=== PATIENT | male | born 1945 | race Caucasian/White ===

== ENCOUNTER 2019-01-20 23:48 | Inpatient (IN) | payer MEDICARE, BC ==
[~2019-01-20] VITALS: Ht 172.7 cm; Wt 92.6 kg
--- NOTE | 2019-01-20 23:50 | NUR ---
Pt. BIB [facility] for near syncope from home, A/Ox4, accompanied by nephew, Farsi speaking, bed in low position, all pt. needs met,
[2019-01-20] MEDS ORDERED: ONDANSETRON 4 MG/2 ML VIAL ONE (23:59)
[2019-01-21] MEDS ORDERED: ONDANSETRON 4 MG/2 ML VIAL IV ONE
--- NOTE | 2019-01-21 00:06 | NUR ---
Phleb. tech. at bedside for blood draw,
[2019-01-21 00:16] LABS: BASOPHILS # (AUTO) 0.1 K/uL (0.0-8.0); BASOPHILS % (AUTO) 1.3 % (0.0-2.0); EOSINOPHILS # (AUTO) 0.3 K/uL (0.0-0.7); EOSINOPHILS % (AUTO) 3.8 % (0.0-7.0); HEMATOCRIT 29.5 % (36.7-47.1); HEMOGLOBIN 9.4 g/dL (12.5-16.3); LYMPHOCYTES # (AUTO) 2.9 K/uL (20.0-40.0); LYMPHOCYTES % (AUTO) 32.9 % (20.5-51.5); MEAN CORPUSCULAR HEMOGLOBIN 23.4 uug (23.8-33.4); MEAN CORPUSCULAR HGB CONC 32 g/dL (32.5-36.3); MEAN CORPUSCULAR VOLUME 73.5 fL (73.0-96.2); MONOCYTES # (AUTO) 0.8 K/uL (2.0-10.0); MONOCYTES % (AUTO) 9.1 % (0.0-11.0); NEUTROPHILS # (AUTO) 4.7 K/uL (1.8-8.9); NEUTROPHILS % (AUTO) 52.9 % (38.5-71.5); PLATELET COUNT (AUTO) 223 K/uL (152-348); RED BLOOD CELL COUNT(AUTO) 4.02 MIL/uL (4.06-5.63); WHITE BLOOD COUNT (AUTO) 8.8 K/uL (3.6-10.2)
[2019-01-21 00:37] LABS: CARBON DIOXIDE 26 mmol/L (21-32); CHLORIDE 104 mmol/L (98-107); CREATININE 1.8 mg/dL (0.6-1.3); GLUCOSE 111 mg/dL (74-106); POTASSIUM 3.6 mmol/L (3.5-5.1); UREA NITROGEN, BLOOD 24 mg/dL (7-18)
[2019-01-21] MEDS ORDERED: IV NORMAL SALINE 1000 ML BAG IV ONE ×2 (00:45)
[2019-01-21 00:47] LABS: ALANINE AMINOTRANSFERASE 20 U/L (16-63); ALKALINE PHOSPHATASE 75 U/L (50-136); ASPARTATE AMINOTRANSFERASE 11 U/L (15-37); BILIRUBIN,DIRECT 0.1 mg/dL (0.0-0.2); BILIRUBIN,TOTAL 0.2 mg/dL (0.2-1.0); TOTAL PROTEIN, SERUM 6.1 g/dL (6.4-8.2)
--- NOTE | 2019-01-21 01:07 | NUR ---
Call placed to [facility], Garrison Wade (ALVIN) will be paged.
--- NOTE | 2019-01-21 01:08 | NUR ---
Called for tele. bed - pt. to go into 305, called Epic - awaiting call back from Sheri,
--- NOTE | 2019-01-21 01:19 | NUR ---
Rad. tech. at bedside for CXR
[2019-01-21] MEDS ORDERED: ACETAMINOPHEN 325 MG TABLET PO PRN (01:30)
[2019-01-21] MEDS ORDERED: MAGNESIUM HYDROXIDE 30 ML LIQUID UDC PO PRN (01:30)
[2019-01-21] MEDS ORDERED: HYDROCODONE/APAP 5-325MG TABLET PO PRN (01:30)
[2019-01-21] MEDS ORDERED: ONDANSETRON 4 MG/2 ML VIAL IV PRN (01:30)
[2019-01-21] MEDS ORDERED: Z GUARD REMEDY PASTE 57 GM TUBE TOP PRN (01:30)
--- NOTE | 2019-01-21 01:36 | NUR ---
Gave report to Lizette ALBARRAN,
--- NOTE | 2019-01-21 01:37 | NUR ---
Rad. tech. at bedside for lateral CXR
--- NOTE | 2019-01-21 01:45 | NUR ---
Pt. taken off unit for admit to tele. 305 via stretcher, NAD
--- NOTE | 2019-01-21 01:55 | NUR ---
Admitted 74 year old male with diagnosis of SYNCOPE. Transferred from ER via gurney. Family at bedside. Patient AAOx4. Ambulatory. Denies pain. No SOB. IV on left hand intact and patent. BP 106/64. Denies feeling dizzy or nauseated. Tele monitors placed. Routine admission care done. Plan of care initiated. Safety measures implemented. Call baez within reach. All needs met at this time. Will continue to monitor throughout shift. Patient family instructed to notify them with any change in status. Pat (daughter) - Arcadio (nephew) -
[2019-01-21 02:40] VITALS: BP 106/64
[2019-01-21] MEDS: IV NS 1000 ML 1,000 ML IV PRN ×2 (03:02→16:31)
[2019-01-21 05:23] VITALS: BP 100/62
--- NOTE | 2019-01-21 06:00 | NUR ---
No acute distress noted at this time. Patient sleeping well in bed. NS running at 75mls/hr on left hand. Call light within reach.
[2019-01-21 07:00] LABS: BASOPHILS % (AUTO) 0.5 % (0.0-2.0); EOSINOPHILS # (AUTO) 0.1 K/uL (0.0-0.7); EOSINOPHILS % (AUTO) 1.6 % (0.0-7.0); HEMOGLOBIN 8.5 g/dL (12.5-16.3); LYMPHOCYTES # (AUTO) 1.5 K/uL (20.0-40.0); LYMPHOCYTES % (AUTO) 22.1 % (20.5-51.5); MEAN CORPUSCULAR HGB CONC 31 g/dL (32.5-36.3); MEAN CORPUSCULAR VOLUME 73.4 fL (73.0-96.2); MONOCYTES # (AUTO) 0.5 K/uL (2.0-10.0); MONOCYTES % (AUTO) 7.2 % (0.0-11.0); NEUTROPHILS # (AUTO) 4.6 K/uL (1.8-8.9); NEUTROPHILS % (AUTO) 68.6 % (38.5-71.5); PLATELET COUNT (AUTO) 192 K/uL (152-348); RED BLOOD CELL COUNT(AUTO) 3.68 MIL/uL (4.06-5.63); WHITE BLOOD COUNT (AUTO) 6.8 K/uL (3.6-10.2)
[2019-01-21 07:27] LABS: CARBON DIOXIDE 26 mmol/L (21-32); CHLORIDE 106 mmol/L (98-107); CREATININE 1.6 mg/dL (0.6-1.3); GLUCOSE 107 mg/dL (74-106); POTASSIUM 5.1 mmol/L (3.5-5.1); UREA NITROGEN, BLOOD 25 mg/dL (7-18)
[2019-01-21] MEDS ORDERED: VALS320T2 PO (10:18)
[2019-01-21] MEDS ORDERED: BIMA2.5D5 EACHEYE (10:20)
[2019-01-21] MEDS ORDERED: ASPI81TA31 PO (10:21)
[2019-01-21] MEDS ORDERED: CALC-822 PO (10:41)
[2019-01-21 11:14] VITALS: BP 104/65
[2019-01-21 11:18] LABS: IRON, SERUM 32 ug/dL (50-175)
[2019-01-21 12:23] LABS: BAND % (MANUAL) 4 % (0-10); EOSINOPHILS % (MANUAL) 1 % (0-8); LYMPHOCYTES % (MANUAL) 23 % (20-40); MONOCYTES % (MANUAL) 8 % (2-10); NEUTROPHILS % (MANUAL) 64 % (42-75)
[2019-01-21] MEDS: ASPIRIN 81 MG TAB.CHEW PO SCH (12:47)
[2019-01-21 15:22] LABS: *BILIRUBIN,URIN NEGATIVE (NEGATIVE); *BLOOD, URINE NEGATIVE (NEGATIVE); *CLARITY,URINE CLEAR (CLEAR); *COLOR,URINE YELLOW (YELLOW); *KETONES,URINE NEGATIVE (NEGATIVE); *UROBILINOGEN,URINE 0.2 E.U./dl (NORMAL); LEUKOCYTE ESTERASE ,URINE NEGATIVE (NEGATIVE); NITRITE, URINE NEGATIVE (NEGATIVE); UGLUCOSE NEGATIVE (NEGATIVE)
[2019-01-21 15:32] VITALS: BP 108/64
[2019-01-21 16:43] LABS: WBC,URINE NONE SEEN /HPF (0-3)
[2019-01-21] MEDS ORDERED: BIMATOPROST 0.01% OPHT DROP 2.5 ML BOTTLE EACHEYE SCH (18:00)
--- NOTE | 2019-01-21 19:30 | NUR ---
Received patient lying in bed, awake, alert, oriented x 4 and ambulatory. Patient is in room air, tolerated. Not in any form of distress. With IV access on the left hand to ongoing IV fluid, infusing well. No complaints at the moment. Still awaiting Neurology consult. Bed in low position, locked, side rails up x 2, call light within reach. Will continue to monitor.
[2019-01-21 20:15] VITALS: BP 110/75
[2019-01-21] MEDS ORDERED: ATORVASTATIN 40 MG TABLET PO SCH (21:00)
[2019-01-21] MEDS ORDERED: LATANOPROST OPHT DROP 2.5 ML BOTTLE EACHEYE SCH (21:00)
[2019-01-21 21:35] LABS: *BILIRUBIN,URIN NEGATIVE (NEGATIVE); *BLOOD, URINE NEGATIVE (NEGATIVE); *CLARITY,URINE CLEAR (CLEAR); *COLOR,URINE YELLOW (YELLOW); *KETONES,URINE NEGATIVE (NEGATIVE); *UROBILINOGEN,URINE 0.2 E.U./dl (NORMAL); LEUKOCYTE ESTERASE ,URINE NEGATIVE (NEGATIVE); NITRITE, URINE NEGATIVE (NEGATIVE); UGLUCOSE NEGATIVE (NEGATIVE)
[2019-01-21 21:44] LABS: *CREATININE,URINE 64.1 mg/dL (30-125); *URINE TOTAL PROTEIN RANDOM < 6.0 mg/dL (<150/24HR)
[2019-01-21 21:47] LABS: RBC,URINE 0-3 /HPF (0-3); WBC,URINE NONE SEEN /HPF (0-3)
[2019-01-22] MEDS: IV NS 1000 ML 1,000 ML IV PRN (04:39)
--- NOTE | 2019-01-22 05:38 | NUR ---
Patient slept well throughout the night. Patient is in room air, tolerated. Not in any form of distress. With IV access on the left hand to ongoing IV fluid, infusing well. No complaints made. Still awaiting Neurology consult, will endorse to morning shift to follow up.
[2019-01-22 06:45] LABS: BASOPHILS % (AUTO) 0.7 % (0.0-2.0); EOSINOPHILS # (AUTO) 0.3 K/uL (0.0-0.7); HEMATOCRIT 27.3 % (36.7-47.1); HEMOGLOBIN 8.7 g/dL (12.5-16.3); LYMPHOCYTES % (AUTO) 35.2 % (20.5-51.5); MEAN CORPUSCULAR HEMOGLOBIN 23.3 uug (23.8-33.4); MEAN CORPUSCULAR HGB CONC 32 g/dL (32.5-36.3); MEAN CORPUSCULAR VOLUME 73.3 fL (73.0-96.2); MONOCYTES # (AUTO) 0.4 K/uL (2.0-10.0); MONOCYTES % (AUTO) 7.9 % (0.0-11.0); NEUTROPHILS # (AUTO) 2.9 K/uL (1.8-8.9); NEUTROPHILS % (AUTO) 51.2 % (38.5-71.5); PLATELET COUNT (AUTO) 186 K/uL (152-348); RED BLOOD CELL COUNT(AUTO) 3.72 MIL/uL (4.06-5.63); WHITE BLOOD COUNT (AUTO) 5.6 K/uL (3.6-10.2)
[2019-01-22 07:07] LABS: THYROID STIMULATING HORMONE 3.765 mIU/mL (0.358-3.740)
[2019-01-22 07:11] LABS: ALANINE AMINOTRANSFERASE 15 U/L (16-63); ALKALINE PHOSPHATASE 69 U/L (50-136); ASPARTATE AMINOTRANSFERASE 9 U/L (15-37); BILIRUBIN,TOTAL 0.3 mg/dL (0.2-1.0); CARBON DIOXIDE 27 mmol/L (21-32); CHLORIDE 107 mmol/L (98-107); CHOLESTEROL 100 mg/dL (<200); CREATININE 1.2 mg/dL (0.6-1.3); GLUCOSE 90 mg/dL (74-106); HDL CHOLESTEROL 52 mg/dL (40-60); MAGNESIUM 1.9 mg/dL (1.8-2.4); PHOSPHOROUS 2.5 mg/dL (2.5-4.9); POTASSIUM 4.1 mmol/L (3.5-5.1); TOTAL PROTEIN, SERUM 5.6 g/dL (6.4-8.2); TRIGLYCERIDES 33 MG/DL (30-150); UREA NITROGEN, BLOOD 20 mg/dL (7-18)
--- NOTE | 2019-01-22 07:30 | NUR ---
Patient in bed, awake, AO4. Patient is in room air. Not in any form of distress. With IV access on the left hand to ongoing IV fluid, infusing well. No complaints made. Still awaiting Neurology consult, will endorse to morning shift to follow up.
[2019-01-22 07:40] LABS: EOSINOPHILS % (MANUAL) 1 % (0-8); LYMPHOCYTES % (MANUAL) 33 % (20-40); MONOCYTES % (MANUAL) 5 % (2-10); NEUTROPHILS % (MANUAL) 61 % (42-75)
[2019-01-22] MEDS: ASPIRIN 81 MG TAB.CHEW PO SCH (08:23)
[2019-01-22 08:24] LABS: CREATINE KINASE, TOTAL 44 U/L (39-308)
[2019-01-22] MEDS ORDERED: FERROUS SULFATE 325 MG TABEC PO SCH (09:00)
--- NOTE | 2019-01-22 10:00 | NUR ---
Gio Johnston saw the patient , his is aware of consult and will follow up
[2019-01-22 11:28] VITALS: BP 107/66
[2019-01-22 14:46] VITALS: BP 104/54
[2019-01-22] MEDS ORDERED: VALS1TAB8 PO (17:35)
[2019-01-22] MEDS ORDERED: ATOR10TA PO (17:37)
[2019-01-22] MEDS ORDERED: OMEP40CA37 PO (17:50)
--- NOTE | 2019-01-22 19:35 | NUR ---
Received patient awake, alert, oriented x 4 and ambulatory. Not in any form of distress. Noted patient's children at the bedside. Patient wants to go home today, per Dr. Hernandez patient can go home after he is seen by Dr. Paris who is presently at the bedside. Will continue to monitor.
--- NOTE | 2019-01-22 20:00 | NUR ---
per Dr. Paris, patient can go home after the blood is drawn for labs ordered by her. Processed all discharge paperwork including Authorization for release of medical information as requested by patient.
[2019-01-22 20:20] LABS: FERRITIN 9 ng/mL (26-388)
--- NOTE | 2019-01-22 20:25 | NUR ---
Blood draw done. Patient accompanied to hospital lobby, ambulatory and was discharged via private car accompanied by his daughter.
[2019-01-23 08:07] LABS: A/G RATIO 1.4 (0.7-1.7); ALBUMIN 3.1 g/dL (2.9-4.4); ALPHA-1-GLOBULIN 0.1 g/dL (0.0-0.4); ALPHA-2-GLOBULIN 0.5 g/dL (0.4-1.0); BETA GLOBULIN 0.8 g/dL (0.7-1.3); GAMMA GLOBULIN 0.8 g/dL (0.4-1.8); GLOBULIN, TOTAL 2.2 g/dL (2.2-3.9); M-SPIKE Not Observed g/dL (Not Observed)
== END 2019-01-22 20:25 | disposition home or self-care (01) | DRG 73 ==
LOC: ER 23:50 → TELE3 01-21 01:40
PROVIDERS: ADMIT Nurse Practitioner Acute Care; ATTEND Nurse Practitioner Acute Care
DX: G90.8 Other disorders of autonomic nervous system (principal); N17.0 Acute kidney failure with tubular necrosis; E44.1 Mild protein-calorie malnutrition; D50.9 Iron deficiency anemia, unspecified; E78.5 Hyperlipidemia, unspecified; I95.9 Hypotension, unspecified; Z68.31 Body mass index [BMI] 31.0-31.9, adult; H40.9 Unspecified glaucoma; E86.0 Dehydration; I10 Essential (primary) hypertension; Z87.891 Personal history of nicotine dependence; E66.9 Obesity, unspecified; Z71.3 Dietary counseling and surveillance; R94.6 Abnormal results of thyroid function studies; R73.9 Hyperglycemia, unspecified
CPT/HCPCS: 36415; 70030-TC; 71045; 71046; 76770; 82747; 82784; 83550; 83735; 83970; 84100; 84155; 84156; 84165; 84300; 84443; 85014; 85025; 86334; 93005; 93307; 93880; A4663; G0378; J2405; J7030